=== PATIENT | female | born 1960 | race Caucasian/White ===

== ENCOUNTER → 2022-11-10 12:59 | Outpatient (CLI) | payer OTHER, SELFPAY ==
--- NOTE | ~2022-11-10 | XR_ITS ---
EXAMINATION: XR chest 2V 11/10/2022 13:13 INDICATION: Chronic cough PROCEDURE: 2 view chest COMPARISON: 09/30/2018 FINDINGS: The lungs are clear. The cardiomediastinal silhouette is within normal limits. There are no pleural effusions. There is no pneumothorax suspected. IMPRESSION: 1: NO ACUTE CARDIOPULMONARY DISEASE. Reviewed, dictated and finalized at location []
== END ==
PROVIDERS: PCP Family Medicine; Visit Provider Nurse Practitioner Family
DX: R05.3 Chronic cough (principal)
CPT/HCPCS: 71046

== ENCOUNTER 2023-05-11 07:00 | Outpatient (NON) | payer OTHER, SELFPAY | END 2023-05-11 07:01 | disposition home or self-care (01) | PROVIDERS: PCP Family Medicine; Visit Provider Internal Medicine Gastroenterology | DX: Z12.11 Encounter for screening for malignant neoplasm of colon (principal); D12.2 Benign neoplasm of ascending colon | CPT/HCPCS: 88305 ==

== ENCOUNTER 2023-05-11 09:53 | Day surgery (SDC) | payer OTHER, SELFPAY ==
[2023-05-05 09:12] VITALS: BMI 31.2
[2023-05-11 10:56] VITALS: BP 129/70; PULSE 94; RESP 16; TEMP 36.8; O2SAT 98
--- NOTE | 2023-05-11 10:57 | WPDANESEPPF ---
Anes - Initial Pre Proc Eval Procedure: Operation Date: 05/11/23 12:30 Proposed Procedures p Colonoscopy - Kojo West MD Date/Time: 05/11/23 10:57 Surgeon: Kojo West MD Pre Op Diagnosis: Family History of Colon Polyps Patient Data Age: 63 Gender: F Height: 1.6 m Weight: 80 kg Allergies Allergy/AdvReac Type Severity Reaction Status Date / Time No Known Allergies Allergy Verified 05/11/23 10:49 Home Medications Medication Instructions Recorded Confirmed Type omeprazole 40 mg capsule,delayed 40 mg PO DAILY #90 caps 10/08/20 05/05/23 Rx release evening primrose oil 500 mg capsule 500 mg PO TID 12/25/20 05/05/23 History vitamin E mixed 1,000 unit capsule 1,000 unit PO DAILY 12/25/20 05/05/23 History cranberry 500 mg capsule 500 mg PO DAILY 11/07/21 05/05/23 History vitamin B complex (Vitamins B 1 cap PO DAILY 11/07/21 05/05/23 History Complex capsule) albuterol sulfate 90 mcg/actuation 2 puff inhalation Q4H PRN 07/07/22 05/05/23 Rx aerosol inhaler (ProAir HFA) shortness of breath or wheezing #18 grams atorvastatin 10 mg tablet See Rx Instructions .Route 10/09/22 05/05/23 Rx .COMPLEX #90 tabs cholecalciferol (vitamin D3) 50 50 mcg PO DAILY 03/16/23 05/05/23 History mcg (2,000 unit) capsule tumeric 100 mg-nessa 150 mg-olive 1 cap PO DAILY 03/16/23 05/05/23 History 50 mg-oreg 150 mg-caprylate capsule sodium,potassium,mag sulfates 17.5 See Rx Instructions PO .COMPLEX 04/02/23 05/05/23 Rx gram-3.13 gram-1.6 gram oral soln #354 mL (Suprep Bowel Prep Kit) alprazolam 0.5 mg tablet (Xanax) 0.5 mg PO TID PRN Anxiety 05/05/23 05/05/23 History folic acid-vitamin C 1,000 mg PO DAILY 05/05/23 05/05/23 History bupropion HCl 300 mg 24 hr tablet, 300 mg PO QAM #90 tabs 05/10/23 Rx extended release escitalopram oxalate 20 mg tablet See Rx Instructions .Route 05/10/23 Rx .COMPLEX #90 tabs ezetimibe 10 mg tablet See Rx Instructions .Route 05/10/23 Rx .COMPLEX #90 tabs montelukast 10 mg tablet See Rx Instructions .Route 05/10/23 Rx .COMPLEX #90 tabs Patient hx anesthesia problems: none Family hx anesthesia problems: none Results Review: All pre-operative results and documents have been reviewed as part of the pre-operative evaluation. [facility] Past Medical History Medical History BMI 29.0-29.9,adult BMI 30.0-30.9,adult BMI 31.0-31.9,adult Mixed hyperlipidemia Surgical History Surgical History H/O shoulder surgery H/O: hysterectomy Family History Family History Grandparent Family history of malignant neoplasm of stomach Diabetes mellitus Father Family history of lung cancer Mesothelioma Mother Lymph node cancer Non-Hodgkins lymphoma Sibling Pneumonia Asthma Diverticulitis Other Family history of arthritis Family history of breast disorder Family history of malignant neoplasm Hypertension Social History Social History Smoking status: Never smoker Second hand tobacco smoke exposure: No Alcohol intake: current Drinks per week: 0 Alcohol use details: RARELY ONE A MONTH Substance use: never Substance use type: does not use Lack of Transportation: YES Lack of Food: Never True Current Housing: I Have Housing Concerned About Future Housing: No Difficulty Paying Gas/Electric Bills: No Difficulty Paying for Meds: No Currently Unemployed: No Education: Trade/Vocational Certificate Difficulty w/ Childcare or Family Care: No Living arrangements: with family Occupation/Education: occupation 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 Gender identity (if verbalized by the patient): Female Sexual Orientation (if Verbalized by the Patient): Straight or Heterose
[2023-05-11] MEDS: LACTATED RINGERS 1,000 ML 150 ML IV CONT (10:59)
--- NOTE | 2023-05-11 11:08 | PM.HPGS ---
History of Present Illness History of Present Illness Consent: Risks, benefits, and alternatives have been discussed and questions answered. Patient agrees to proceed with procedure. Chief complaint: Family History of Colon Polyps Narrative: Seamus Colon is a 63 year old female presents for screening colonoscopy. Patient's sister has had colon polyps. Patient stated her own weight appetite and bowel movements are normal. Previous colonoscopy 10 years ago was unremarkable. Patient states that her bowel habits are normal with no pain and no bleeding. Review of Systems Review of Systems: Review of systems noncontributory. [facility] Past Medical History Medical History BMI 29.0-29.9,adult BMI 30.0-30.9,adult BMI 31.0-31.9,adult Mixed hyperlipidemia Surgical History Surgical History H/O shoulder surgery H/O: hysterectomy Family History Family History Grandparent Family history of malignant neoplasm of stomach Diabetes mellitus Father Family history of lung cancer Mesothelioma Mother Lymph node cancer Non-Hodgkins lymphoma Sibling Pneumonia Asthma Diverticulitis Other Family history of arthritis Family history of breast disorder Family history of malignant neoplasm Hypertension Social History Social History Smoking status: Never smoker Second hand tobacco smoke exposure: No Alcohol intake: current Drinks per week: 0 Alcohol use details: RARELY ONE A MONTH Substance use: never Substance use type: does not use Lack of Transportation: YES Lack of Food: Never True Current Housing: I Have Housing Concerned About Future Housing: No Difficulty Paying Gas/Electric Bills: No Difficulty Paying for Meds: No Currently Unemployed: No Education: Trade/Vocational Certificate Difficulty w/ Childcare or Family Care: No Living arrangements: with family Occupation/Education: occupation 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 Gender identity (if verbalized by the patient): Female Sexual Orientation (if Verbalized by the Patient): Straight or Heterosexual Spiritual care concerns: No Agree to blood products: Yes Meds Home Medications and Allergies Home Medications Medication Instructions Recorded Confirmed Type omeprazole 40 mg capsule,delayed 40 mg PO DAILY #90 caps 10/08/20 05/05/23 Rx release evening primrose oil 500 mg capsule 500 mg PO TID 12/25/20 05/05/23 History vitamin E mixed 1,000 unit capsule 1,000 unit PO DAILY 12/25/20 05/05/23 History cranberry 500 mg capsule 500 mg PO DAILY 11/07/21 05/05/23 History vitamin B complex (Vitamins B 1 cap PO DAILY 11/07/21 05/05/23 History Complex capsule) albuterol sulfate 90 mcg/actuation 2 puff inhalation Q4H PRN 07/07/22 05/05/23 Rx aerosol inhaler (ProAir HFA) shortness of breath or wheezing #18 grams atorvastatin 10 mg tablet See Rx Instructions .Route 10/09/22 05/05/23 Rx .COMPLEX #90 tabs cholecalciferol (vitamin D3) 50 50 mcg PO DAILY 03/16/23 05/05/23 History mcg (2,000 unit) capsule tumeric 100 mg-nessa 150 mg-olive 1 cap PO DAILY 03/16/23 05/05/23 History 50 mg-oreg 150 mg-caprylate capsule sodium,potassium,mag sulfates 17.5 See Rx Instructions PO .COMPLEX 04/02/23 05/05/23 Rx gram-3.13 gram-1.6 gram oral soln #354 mL (Suprep Bowel Prep Kit) alprazolam 0.5 mg tablet (Xanax) 0.5 mg PO TID PRN Anxiety 05/05/23 05/05/23 History folic acid-vitamin C 1,000 mg PO DAILY 05/05/23 05/05/23 History bupropion HCl 300 mg 24 hr tablet, 300 mg PO QAM #90 tabs 05/10/23 Rx extended release escitalopram oxalate 20 mg tablet See Rx Instructions .Route 05/10/23 Rx .COMPLEX #90 tabs ezetimibe 10 mg tablet See Rx Instructions .Route 1
[2023-05-11] MEDS: SIMETHICONE ORAL SUSPENSION 20 MG/0.3 ML 30 ML BOTTLE 0.6 ML IRRIGATION (11:20)
[2023-05-11 11:29] VITALS: BP 107/62; PULSE 71; RESP 16; O2SAT 98
[2023-05-11 11:39] VITALS: BP 100/72; PULSE 67; RESP 18; O2SAT 100
[2023-05-11 11:49] VITALS: BP 99/62; PULSE 70; RESP 20; O2SAT 100
--- NOTE | 2023-05-11 12:03 | WPDANESPN ---
Anes - Prog Note Post-Op Date/Time: 05/11/23 12:03 Cardiovascular status: normal Respiratory status: normal Airway patency: baseline Mental status: baseline Post-Op hydration status: normal Vital Signs: Last Vital Signs Temp 36.8 C 05/11/23 10:56 Pulse 70 05/11/23 11:49 Resp 20 05/11/23 11:49 BP 99/62 L 05/11/23 11:49 Pulse Ox 100 05/11/23 11:49 O2 Del Method Room Air 05/11/23 11:49 Pain Score (VAS): 0/10 I/O: Intake & Output 05/10/23 05/11/23 05/11/23 23:59 07:59 15:59 Intake Total 400 Balance 400 Patient Feedback: Patient satisfied with anesthetic care.
== END 2023-05-11 11:55 | disposition home or self-care (01) ==
PROVIDERS: PCP Family Medicine; Visit Provider Internal Medicine Gastroenterology
PROC: 0DJD8ZZ Inspection of Lower Intestinal Tract, Via Natural or Artificial Opening Endoscopic (ICD-10-PCS; CPT 45378; principal; 2023-05-11 12:30)
DX: Z83.718 Family history of other colon polyps (principal); D12.2 Benign neoplasm of ascending colon; K57.30 Diverticulosis of large intestine without perforation or abscess without bleeding; K64.8 Other hemorrhoids
CPT/HCPCS: 45385

== ENCOUNTER 2023-11-24 14:29 | Outpatient (CLI) | payer OTHER, SELFPAY ==
--- NOTE | ~2023-11-24 | XR_ITS ---
EXAMINATION: XR elbow LT 2V DATE: 11/24/2023 14:46 INDICATION: Left arm pain TECHNIQUE: Anteroposterior, two oblique and lateral views of the left elbow were obtained. COMPARISON: None. FINDINGS: Alignment is normal. No fracture or joint effusion. Joint spaces are normal. Soft tissues are unremar kable. IMPRESSION: 1. Negative left elbow radiographs. Reviewed, dictated and finalized at location B.
--- NOTE | ~2023-11-24 | XR_ITS ---
EXAMINATION: XR shoulder LT min 2V DATE: 11/24/2023 14:46 INDICATION: Left arm pain TECHNIQUE: AP internally and externally rotated, AP oblique externally rotated and axillary views of the left shoulder were obtained. COMPARISON: None FINDINGS: Normal alignment. No fracture. Glenohumeral joint is normal. Mild acromioclavicular osteoarthritis. Small anterior subacromial spur. Soft tissues are unremarkable. Visualized portion of the left lung a re clear. IMPRESSION: Mild left acromioclavicular osteoarthritis. Reviewed, dictated and finalized at location B.
== END 2023-11-24 14:30 ==
LOC: MICIMG 14:31
PROVIDERS: PCP Family Medicine; Visit Provider Nurse Practitioner Adult Health
DX: M79.602 Pain in left arm (principal); M19.012 Primary osteoarthritis, left shoulder
CPT/HCPCS: 73030; 73070

== ENCOUNTER 2023-11-27 09:47 | Emergency (ER) | payer OTHER, SELFPAY ==
[2023-11-27] VITALS (7 sets, daily range): BP systolic 125–136; BP diastolic 70–71; PULSE 73–78; RESP 16–18; O2SAT 95–100
--- NOTE | ~2023-11-27 | CT_ITS ---
EXAMINATION: CT brain wo con DATE: 11/27/2023 10:54 INDICATION: Fall with head injury TECHNIQUE: Computed tomography (CT) of the head was performed without intravenous contrast. Sagittal and coronal reconstructions were performed. The mA was adjusted according to patient size. Iterative reconstruction technique was employed. The dose-length product was 681.00 mGy-cm. COMPARISON: None FINDINGS: No fracture. No acute intracranial hemorrhage, acute infarction or abnormal extra axial fluid collect ion. Ventricles are normal and symmetric. No mass/mass effect. The orbits, paranasal sinuses and mast oid air cells are normal. IMPRESSION: 1. No fracture or acute intracranial process. Reviewed, dictated and finalized at location B.
--- NOTE | ~2023-11-27 | XR_ITS ---
EXAMINATION: XR shoulder LT min 2V DATE: 11/27/2023 10:57 INDICATION: Left shoulder pain. Fall. TECHNIQUE: 4 views of left shoulder were obtained. COMPARISON: Left shoulder radiograph 11/24/2023 FINDINGS: Bone alignment is normal. No fracture. There is mild osteoarthritis of acromioclavicular kenny int and glenohumeral joint. Subacromial spurring is noted. IMPRESSION: 1. Mild polyarticular osteoarthritis. Reviewed, dictated and finalized at location A.
--- NOTE | ~2023-11-27 | XR_ITS ---
EXAMINATION: XR hip LT 2V w AP pelvis DATE: 11/27/2023 10:57 INDICATION: Left hip pain. Fall. TECHNIQUE: An anteroposterior view of the pelvis and 2 views of left hip were obtained. COMPARISON: None. FINDINGS: There is lumbar dextrocurvature and severe spondylosis. No fracture. There is mild osteoart hritis of hips. IMPRESSION: 1. Mild osteoarthritis of the hips. Reviewed, dictated and finalized at location A.
--- NOTE | 2023-11-27 10:41 | ED.FALL ---
HPI - Fall General Chief Complaint: Fall Stated Complaint: fall, L hip/shoulder pain, hit head Time Seen by Provider: 11/27/23 10:22 History of Present Illness HPI Narrative: 63-year-old female presents to emergency department after a fall that occurred prior to arrival. Patient states she slipped on a concrete paper and fell, landing on her left side. She reports hitting her head and landing on her left shoulder left hip which is not painful. She endorses a history of chronic pain to her left shoulder which has been recently worked up by her PCP and showed arthritis. She has not followed up with an orthopedist regarding her left shoulder pain. She denies vision changes, focal numbness or weakness, neck or back pain, other injury. She is not anticoagulated. Related Data Home Medications Medication Instructions Recorded Confirmed evening primrose oil 500 mg capsule 500 mg PO TID 12/25/20 11/24/23 vitamin E mixed 1,000 unit capsule 1,000 unit PO DAILY 12/25/20 11/24/23 cranberry 500 mg capsule 500 mg PO DAILY 11/07/21 11/24/23 vitamin B complex (Vitamins B 1 cap PO DAILY 11/07/21 11/24/23 Complex capsule) cholecalciferol (vitamin D3) 50 50 mcg PO DAILY 03/16/23 11/24/23 mcg (2,000 unit) capsule alprazolam 0.5 mg tablet (Xanax) 0.5 mg PO TID PRN Anxiety 05/05/23 11/24/23 folic acid-vitamin C 1,000 mg PO DAILY 05/05/23 11/24/23 Allergies Allergy/AdvReac Type Severity Reaction Status Date / Time No Known Allergies Allergy Verified 11/27/23 09:49 Review of Systems Review of Systems: CONSTITUTIONAL: Denies fever, chills, or sweats. EYES: Denies visual changes, redness, or discharge. ENT: Denies rhinorrhea, congestion, sore throat, or otalgia. CARDIOVASCULAR: Denies chest pain, palpitations, or edema. RESPIRATORY: Denies cough or dyspnea. GASTROINTESTINAL: Denies abdominal pain, nausea, vomiting, or diarrhea. GENITOURINARY: Denies dysuria or hematuria. SKIN: Denies rash or itching. MUSCULOSKELETAL: See HPI NEUROLOGIC: Denies headache, numbness, or weakness. PSYCHIATRIC: Denies anxiety or depression. [facility] Past Medical History Medical History Breast screening Joint pain Left arm pain Mixed hyperlipidemia Screen for colon cancer Screening for vaginal cancer Weight gain Surgical History Surgical History H/O shoulder surgery H/O: hysterectomy Family History Family History Grandparent Family history of malignant neoplasm of stomach Diabetes mellitus Father Family history of lung cancer Mesothelioma Mother Lymph node cancer Non-Hodgkins lymphoma Sibling Pneumonia Asthma Diverticulitis Other Family history of arthritis Family history of breast disorder Family history of malignant neoplasm Hypertension Social History Social History Smoking status: Never smoker Second hand tobacco smoke exposure: No Alcohol intake: current Drinks per week: 0 Alcohol use details: RARELY ONE A MONTH Substance use: never Substance use type: does not use Lack of Transportation: YES Lack of Food: Never True Current Housing: I Have Housing Concerned About Future Housing: No Difficulty Paying Gas/Electric Bills: No Difficulty Paying for Meds: No Currently Unemployed: No Education: Trade/Vocational Certificate Difficulty w/ Childcare or Family Care: No Living arrangements: with family Occupation/Education: occupation 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 Gender identity (if verbalized by the patient): Female Sexual Orientation (if Verbalized by the Patient): Straight or Heterosexual Spiritual care concerns: No Agree to blood products: Yes Exam Narrative: GENERAL: Well-appearing, we
[2023-11-27] MEDS: CYCLOBENZAPRINE HCL 10 MG TABLET PO (11:24)
== END 2023-11-27 11:44 | disposition home or self-care (01) ==
PROVIDERS: Emergency Provider Physician Assistant; PCP Family Medicine
DX: S09.90XA Unspecified injury of head, initial encounter (principal); M25.512 Pain in left shoulder; S76.012A Strain of muscle, fascia and tendon of left hip, initial encounter; E78.5 Hyperlipidemia, unspecified; W01.0XXA Fall on same level from slipping, tripping and stumbling without subsequent striking against object, initial encounter
CPT/HCPCS: 70450; 73030; 73502; 99284; A9270

== ENCOUNTER 2023-12-12 08:46 | Outpatient (CLI) | payer OTHER, SELFPAY ==
--- NOTE | ~2023-12-12 | MR_ITS ---
MRI of the left shoulder Technique: Axial proton-density fat-sat images, coronal proton density fat-sat and T2 fat-sat images, and sagittal T1-weighted and T2 fat-sat images were acquired. Clinical History: Rotator cuff tear Findings: There is moderate AC joint degenerative change, probably present change of the distal clavi nadia. Coracoclavicular, coracoacromial, and coracohumeral ligaments are intact. There is a 0.9 x 1.0 cm full-thickness tear at the very anterior, distal supraspinatus tendon inserti on. No partial or full-thickness tear of the infraspinatus tendon. Subscapularis tendon demonstrates probable full-thickness tearing of the distal transverse ligament fibers, with partial thickness vale cular surface tearing of the midportion of the tendon. There is associated complete medial dislocatio n of the biceps tendon from the acetabular roof. No labral tear identified. Inferior glenohumeral ligament is intact. There is moderate glenohumeral joint effusion, with fluid i n the subscapularis recess. There is small amount of fluid passing through the rotator cuff defect in to the subacromial/subdeltoid bursa. No degenerative change of the glenohumeral joint. No muscle atro phy or edema. Impression: 0.9 x 1.0 cm full-thickness tear at the anterior, distal supraspinatus tendon insertion. Complete tearing of the distal transverse ligament fibers of the subscapularis tendon, with moderate grade partial thickness articular surface tearing of the midportion of the subscapularis tendon. Associated medial dislocation of the biceps tendon from the bicipital groove. Moderate glenohumeral joint effusion. Moderate AC joint degenerative change. Reviewed, dictated and finalized at location . Impression: 0.9 x 1.0 cm full-thickness tear at the anterior, distal supraspinatus tendon i nsertion. Complete tearing of the distal transverse ligament fibers of the subscapularis tendon, with moderate grade partial thickness articular surface tearing of the midportion of the subscapularis tendon. Associated medial dislocation of the biceps tendon from the bicipital groove. Moderate glenohumeral joint effusion. Moderate AC joint degenerative change.
== END 2023-12-12 08:47 ==
LOC: MICIMG 08:47
PROVIDERS: PCP Family Medicine; Visit Provider Orthopaedic Surgery
DX: M25.412 Effusion, left shoulder (principal); S43.492A Other sprain of left shoulder joint, initial encounter; X58.XXXA Exposure to other specified factors, initial encounter
CPT/HCPCS: 73221

== ENCOUNTER 2023-12-21 11:10 | Outpatient (CLI) | payer OTHER, SELFPAY ==
--- NOTE | 2023-12-21 11:23 | ECG_ITS ---
Test Date: 2023-12-21 11:30:51 Measurements Intervals [place] Rate: 70 P: 53 NH: 138 QRS: -21 QRSD: 93 T: 48 QT: 374 QTc: 404 Interpretive Statements SINUS RHYTHM BASELINE ARTIFACT- I, II, III, AVR, AVL, V5-V6 NORMAL ECG No previous ECG available for comparison Electronically Signed On 12-21-2023 11:35:19 CDT by Bernard Venegas D.O.
== END 2023-12-21 11:11 | disposition home or self-care (01) ==
LOC: ANHSURGERY 11:13
PROVIDERS: PCP Family Medicine; Visit Provider Orthopaedic Surgery
DX: Z01.818 Encounter for other preprocedural examination (principal); E78.2 Mixed hyperlipidemia
CPT/HCPCS: 93005

== ENCOUNTER 2023-12-22 01:53 | Day surgery (SDC) | payer OTHER, SELFPAY ==
[2023-12-17 15:41] VITALS: BMI 31.4
--- NOTE | 2023-12-17 15:47 | PC.NURSE ---
Report to the Outpatient Waiting Room, entrance under the green pavilion located off [facility], at time _0830_ on date _[id number]_. Planned Procedure Time: _1030_. Time changes happen often and if your time is changed the preop area will call you the afternoon before. - You and your visitor will be asked to self-screen and do not enter if you have any COVID symptoms. - A mask is optional within the hospital at this time. Patients may have clear liquids (water, carbonated beverages, clear teas, apple juice) until 3 hours prior to surgery with a maximum of 20 ounces. - No food from midnight until time of surgery Take the following medications with a SIP of water the morning of surgery: __Bupropion, Escitalopram and if needed Alprazolam. DO NOT STOP ANY OF YOUR OTHER PRESCRIPTION MEDICATIONS PRIOR TO SURGERY ?EXCEPT THE FOLLOWING Medications to discontinue per physician All vitamins and supplements. Date to take last aahr___[id number] Please no make-up, nail panamanian, hairspray, perfume, deodorant, or body powder the day of surgery. No jewelry (including any body piercings) or valuables the day of surgery, leave them at home. Please take a shower or bath the night before, or the morning of, surgery with an antibacterial soap. Wear comfortable, loose fitting clothing. - Jewelry must be removed prior to entering the operating room. Rings and piercings that are not removed may be cut off. - The hospital will not accept responsibility for valuables. - Please leave all valuables, including medications, at home the day of surgery. If you are going home after surgery, a licensed courtesy van driver must drive you home. - NO public transportation without another adult if you receive anesthesia. - We recommend that an adult stay with you for 24 hours following discharge. - We also recommend that you do not drive, make important decision, drink alcoholic beverages, or take any drugs that were not prescribed by your health care provider for at least 24 hours after your discharge time. Follow any additional instructions given to you from your surgeon. If you or anyone in your household have experienced Covid symptoms in the past week, please notify your surgeon or the nurse liaison at the phone number below for possible testing. Telephone instructions given to __Robin__and asked if any additional questions and then verbalized understanding. Patient advised to call surgeon office or pre surgery nurse liaison [phone] if any additional questions.
[2023-12-22] VITALS (15 sets, daily range): BP systolic 121–142; BP diastolic 63–83; PULSE 72–89; RESP 9–18; TEMP 36.4; O2SAT 92–100
--- NOTE | 2023-12-22 07:19 | WPDHPUPDATE1 ---
History and Physical Update Update Date/Time: 12/22/23 07:19 History and Physical has been reviewed, including an updated exam of the patient. There are NO changes in the patient's condition. Risks, benefits, and alternatives have been discussed and questions answered. Patient agrees to proceed with procedure.
[2023-12-22] MEDS: LACTATED RINGERS 1,000 ML 30 ML IV CONT ×3 (09:01→15:22)
[2023-12-22] MEDS: ACETAMINOPHEN 500 MG TABLET 1000 MG PO (09:02)
[2023-12-22] MEDS: CELECOXIB 200 MG CAPSULE PO (09:02)
--- NOTE | 2023-12-22 10:24 | WPDANESEPPF ---
Anes - Initial Pre Proc Eval Procedure: Operation Date: 12/22/23 10:30 Proposed Procedures p Left Open Rotator Cuff Repair - Harinder Jones MD Date/Time: 12/22/23 10:24 Surgeon: Harinder Jones MD Pre Op Diagnosis: left rotator cuff tear Patient Data Age: 63 Gender: F Height: 1.6 m Weight: 80.8 kg Last Vital Signs Temp 97.5 F L 12/22/23 08:57 Pulse 72 12/22/23 08:57 Resp 16 12/22/23 08:57 BP 126/74 12/22/23 08:57 Pulse Ox 98 12/22/23 08:57 O2 Del Method Room Air 12/22/23 08:57 Allergies Allergy/AdvReac Type Severity Reaction Status Date / Time No Known Allergies Allergy Verified 12/17/23 15:37 Home Medications Medication Instructions Recorded Confirmed Type omeprazole 40 mg capsule,delayed 40 mg PO DAILY #90 caps 10/08/20 12/22/23 Rx release evening primrose oil 500 mg capsule 500 mg PO TID 12/25/20 12/22/23 History vitamin E mixed 1,000 unit capsule 1,000 unit PO DAILY 12/25/20 12/22/23 History cranberry 500 mg capsule 500 mg PO DAILY 11/07/21 12/22/23 History vitamin B complex (Vitamins B 1 cap PO DAILY 11/07/21 12/22/23 History Complex capsule) albuterol sulfate 90 mcg/actuation 2 puff inhalation Q4H PRN 07/07/22 12/22/23 Rx aerosol inhaler (ProAir HFA) shortness of breath or wheezing #18 grams cholecalciferol (vitamin D3) 50 50 mcg PO DAILY 03/16/23 12/22/23 History mcg (2,000 unit) capsule alprazolam 0.5 mg tablet (Xanax) 0.5 mg PO TID PRN Anxiety 05/05/23 12/22/23 History folic acid-vitamin C 1,000 mg PO DAILY 05/05/23 12/22/23 History phentermine 37.5 mg tablet 18.75 mg PO BID #60 tabs 11/24/23 12/22/23 Rx lidocaine 5 % topical patch 1 patch topical DAILY #15 ea 11/27/23 12/22/23 Rx atorvastatin 10 mg tablet See Rx Instructions .Route 12/01/23 12/22/23 Rx .COMPLEX #90 tabs bupropion HCl 300 mg 24 hr tablet, 300 mg PO QAM #90 tabs 12/01/23 12/22/23 Rx extended release escitalopram oxalate 20 mg tablet See Rx Instructions .Route 12/04/23 12/22/23 Rx .COMPLEX #90 tabs ezetimibe 10 mg tablet See Rx Instructions .Route 12/04/23 12/22/23 Rx .COMPLEX #90 tabs montelukast 10 mg tablet See Rx Instructions .Route 12/04/23 12/22/23 Rx .COMPLEX #90 tabs cyclobenzaprine 10 mg tablet 10 mg PO TID PRN muscle spasm #30 12/17/23 12/22/23 Rx tabs oxycodone-acetaminophen 5 mg-325 1 tablet PO Q8H PRN pain #40 tabs 12/17/23 12/22/23 Rx mg tablet Patient hx anesthesia problems: none Family hx anesthesia problems: none Results Review: All pre-operative results and documents have been reviewed as part of the pre-operative evaluation. [facility] Past Medical History Medical History Breast screening Joint pain Left arm pain Mixed hyperlipidemia Screen for colon cancer Screening for vaginal cancer Weight gain Surgical History Surgical History H/O shoulder surgery H/O: hysterectomy Family History Family History Grandparent Family history of malignant neoplasm of stomach Diabetes mellitus Father Family history of lung cancer Mesothelioma Mother Lymph node cancer Non-Hodgkins lymphoma Sibling Pneumonia Asthma Diverticulitis Other Family history of arthritis Family history of breast disorder Family history of malignant neoplasm Hypertension Social History Social History Smoking status: Never smoker Second hand tobacco smoke exposure: No Alcohol intake: current Drinks per week: 0 Alcohol use details: RARELY ONE A MONTH Substance use: never Substance use type: does not use Lack of Transportation: YES Lack of Food: Never True Current Housing: I Have Housing Concerned About Future Housing: No Difficulty Paying Gas/Electric Bills: No Difficulty
--- NOTE | 2023-12-22 10:42 | WPDANESPNB ---
Anes - Peripheral Nerve Block Date/Time: 12/22/23 10:42 I have discussed with the patient/family/POA the placement of a peripheral nerve block for post-operative pain management, including associated risks, benefits, complications, and side effects. Alternative methods of post-operative analgesia were detailed. Questions were solicited and answers provided to the satisfaction of the patient/family/POA. Time-Out: A pre-procedural Time-Out was completed immediately before starting the procedure and confirmed: Patient Identification, Site, Procedure, Patient Position and the Availability of Requisite Equipment. Clinical Indications: Acute post-operative pain management requested by the operative surgeon. Nerve Block Insertion Note Anes-nerve block: interscalene left Patient position: supine Skin prep: chlorhexidine Needle: 22 gauge, stimulating, insulated echogenic needle. Needle length: 80 mm Technique: ultrasound Injectate: other (Bupiv 0.5%, 15 mls. ) Observations: tolerated well Complications: none Procedure start time:: 1034 Procedure end time:: 1042 Assisted by Kathrin DODD (from OR).
[2023-12-22] MEDS: ceFAZolin 2 GM/D5W 50 ML 2 GM/50 ML BAG IVPB (10:50)
[2023-12-22] MEDS: HYDROGEN PEROXIDE 3% SOLN(*SP) 473 ML BOTTLE 237 ML IRRIGATION (12:13)
--- NOTE | 2023-12-22 12:43 | W.PM.PROC2 ---
Procedure Note - Detailed Date of Procedure 12/22/23 Pre-op Diagnosis left rotator cuff tear Post-op Diagnosis Same Procedure Performed REPAIR LEFT ROTATOR CUFF Surgeon Harinder Jones MD Anesthesia General Description of Procedure THE PATIENT WAS TAKEN TO THE OPERATING ROOM AND THEN INTUBATED AND PLACED IN THE BEACH CHAIR POSITION. THE LEFT UPPER EXTREMITY WAS PREPPED AND DRAPED IN THE NORMAL STERILE FASHION. AN INCISION WAS MADE IN BETWEEN THE GLADYS-LATERAL ACROMION AND THE AC JOINT. THE FASCIA WAS IDENTIFIED. NEXT A MINI OPEN INCISION WAS MADE THROUGH THE DELTOID MUSCLE EXPOSING THE SUBACROMIAL SPACE. A LIMITED ACROMIOPLASTY WAS PREFORMED. THE ROTATOR CUFF WAS IDENTIFIED. THERE WAS ABUNDANT AMOUNT OF BURSAL TISSUE THAT WAS DEBRIDED. THE ANTERIOR CUFF HAD THINNING THERE WAS A FULL THICKNESS TEAR. IT MEASURED APPROXIMATELY 3 CM X 2 CM. THE GREATER TUBEROSITY WAS DEBRIDED TO BLEEDING BONE. 3 ARTHREX 5.5 SUTURE ANCHORS WERE PLACED IN TO GOOD BONE AND HAD VERY GOOD BITES. LILI-ZAHEER TYPE REPAIRS WERE DONE TO THE ROTATOR CUFF AND THERE WAS GOOD APPROXIMATION TO THE GREATER TUBEROSITY. THE REPAIR WAS EXCELLENT. THERE WAS NO IMPINGEMENT ON THE REPAIR FROM THE ACROMION WITH RANGE OF MOTION. THE WOUND WAS IRRIGATED WITH COPIOUS AMOUNTS OF ANTIBIOTIC SOLUTION, H202 PLUS STERILE WATER AND STERILE BETADINE AND WATER . THE DELTOID MUSCLE WAS REPAIRED WITH #2 FIBER WIRE AND 0 VICRYL SUTURE. THE SUBCUTANEOUS LAYER WAS APPROXIMATED WITH 2-0 VICRYL. THE SKIN WAS APPROXIMATED WITH 3-0 QUIL AND DERMABOND. STERILE DRESSING WAS APPLIED. PATIENT WAS EXTUBATED. Estimated Blood Loss 20 Complications No immediate complications Condition Stable Disposition PACU
[2023-12-22] MEDS: fentaNYL CITRATE INJ (*CRX) 100 MCG/2 ML VIAL 25 MCG IV PUSH ×8 (13:07→13:45)
[2023-12-22] MEDS: MORPHINE SULFATE (*CRX) 4 MG/ML INJ 2 MG IV PUSH ×4 (14:20→15:00)
== END 2023-12-22 16:38 | disposition home or self-care (01) ==
PROVIDERS: PCP Family Medicine; Visit Provider Orthopaedic Surgery
PROC: (CPT 23420; principal; 2023-12-22 10:30)
DX: S46.012A Strain of muscle(s) and tendon(s) of the rotator cuff of left shoulder, initial encounter (principal); W19.XXXA Unspecified fall, initial encounter; G89.18 Other acute postprocedural pain; E78.2 Mixed hyperlipidemia; Z79.51 Long term (current) use of inhaled steroids
CPT/HCPCS: 64415; 23410; 93005; A9270; C1713; J0690; J1100; J2250; J2270; J2405; J2704; J3010; J7120